=== PATIENT | female | born 1985 | race Caucasian/White ===

== ENCOUNTER 2018-02-14 15:40 | Observation (INO) | payer OTHER ==
[~2018-02-14] VITALS: Ht 168 cm; Wt 80.3 kg
[2018-02-14 16:00] VITALS: BP 118/72
[2018-02-14 16:10] VITALS: BP 118/72
[2018-02-15] MEDS ORDERED: PNV11TAB PO (16:56)
== END 2018-02-14 18:40 | disposition home or self-care (01) ==
LOC: 4S 15:40
PROVIDERS: ADMIT Obstetrics & Gynecology; ATTEND Obstetrics & Gynecology
DX: O62.9 Abnormality of forces of labor, unspecified (principal); Z3A.39 39 weeks gestation of pregnancy
CPT/HCPCS: 59025; G0378

== ENCOUNTER 2018-02-15 16:22 | Inpatient (IN) | payer OTHER ==
[~2018-02-15] VITALS: Ht 167.6 cm; Wt 78.0 kg
[2018-02-15] MEDS ORDERED: PNV11TAB PO (16:56)
[2018-02-15] MEDS ORDERED: RINGERS SOLUTION,LACTATED 1,000 ML IV ONE ×2 (17:10→17:25)
[2018-02-15] MEDS ORDERED: RINGERS SOLUTION,LACTATED 1,000 ML IV PRN (17:14)
[2018-02-15] MEDS ORDERED: OXYTOCIN 30 UNITS/LACT RINGERS 500 ML IV ONE (17:14)
[2018-02-15] MEDS ORDERED: CITRIC ACID/SODIUM CITRATE 30 ML SOLUTION UDCUP PO PRN (17:15)
[2018-02-15] MEDS ORDERED: LIDOCAINE/PF 1% 30 ML VIAL INJ PRN (17:15)
[2018-02-15] MEDS ORDERED: METHYLERGONOVINE MALEATE 0.2 MG/ML VIAL IM PRN (17:15)
[2018-02-15] MEDS ORDERED: METOCLOPRAMIDE HCL 5 MG/ML 2 ML VIAL IVP PRN (17:15)
[2018-02-15] MEDS ORDERED: FentaNYL CITRATE-PF 100 MCG/2 ML VIAL IVP PRN (17:15)
[2018-02-15] MEDS ORDERED: LIDOCAINE/PF 2% 5 ML VIAL ONE (17:35)
[2018-02-15] MEDS ORDERED: ROPIVACAINE HCL/PF 0.2% 100 ML ED ONE (17:35)
[2018-02-15] MEDS: RINGERS SOLUTION,LACTATED 1,000 ML IV SCH ×2 (17:54→21:17)
[2018-02-15] MEDS ORDERED: ROPIVACAINE HCL/PF 0.2% 100 ML ED PRN (17:59)
[2018-02-15] MEDS ORDERED: ONDANSETRON HCL 4 MG/2 ML VIAL IVP PRN (18:00)
[2018-02-15] MEDS ORDERED: DiphenhydrAMINE HCL 50 MG/ML VIAL IVP PRN (18:00)
[2018-02-15] MEDS ORDERED: NALBUPHINE HCL 10 MG/ML VIAL IVP PRN (18:00)
[2018-02-15 18:08] LABS: BASOPHILS % (AUTO) 0.3 % (0.0-2.0); EOSINOPHILS % (AUTO) 0 % (1.0-6.0); HEMATOCRIT 36.8 % (36-46); HEMOGLOBIN 12.4 g/dL (12.0-16.0); LYMPHOCYTES # (AUTO) 1.2 K/uL (1.0-4.8); MEAN CORPUSCULAR HEMOGLOBIN 32.7 pg (26.0-34.0); MEAN CORPUSCULAR HGB CONC 33.6 G/dL (31.0-37.0); MEAN CORPUSCULAR VOLUME 97 fL (80-100); MONOCYTES # (AUTO) 0.3 K/uL (0.1-1.0); MONOCYTES % (AUTO) 2.2 % (2.0-9.0); NEUTROPHILS # (AUTO) 10.3 K/uL (1.8-7.7); PLATELET COUNT (AUTO)-OB 154 K/uL (150-450); RED BLOOD CELL COUNT(AUTO) 3.78 MIL/uL (4.00-5.20); RED CELL DISTRIBUTION WIDTH 13.2 % (11.5-14.5)
[2018-02-15 18:09] LABS: NEUTROPHILS % (AUTO) 87.5 % (40.0-70.0)
[2018-02-15] MEDS ORDERED: OXYGEN THERAPY IH SCH (20:00)
[2018-02-16] MEDS ORDERED: ROPIVACAINE HCL/PF 0.2% 100 ML ED ONE (00:16)
[2018-02-16] MEDS: RINGERS SOLUTION,LACTATED 1,000 ML IV SCH (05:00)
[2018-02-16] MEDS ORDERED: OXYTOCIN 20 UNITS/LACT RINGERS 1,000 ML IV SCH (05:52)
[2018-02-16] MEDS ORDERED: ACETAMINOPHEN/CODEINE 300-30 MG TABLET PO PRN ×2 (06:00)
[2018-02-16] MEDS ORDERED: SENNA/DOCUSATE SODIUM 187-50 MG TABLET PO PRN (06:00)
[2018-02-16] MEDS ORDERED: GLYCERIN/WITCH HAZEL LEAF 40 PADS JAR TP PRN (06:00)
[2018-02-16] MEDS ORDERED: MEASLES/MUMPS/RUBELLA VACCINE, LIVE 0.5 ML/VIAL SQ ONE (06:00)
[2018-02-16] MEDS ORDERED: LANOLIN 7 GM OINTMENT TP PRN (06:00)
[2018-02-16] MEDS ORDERED: BENZOCAINE 20%/MENTHOL 56 GM SPRAY CANISTER TP PRN (06:00)
[2018-02-16] MEDS ORDERED: IBUPROFEN 600 MG TABLET PO PRN (06:00)
[2018-02-16] MEDS: MAGNESIUM HYDROXIDE SUSPENSION 30 ML UDCUP PO PRN (21:30)
[2018-02-17 06:47] LABS: BASOPHILS % (AUTO) 0.2 % (0.0-2.0); EOSINOPHILS % (AUTO) 0.5 % (1.0-6.0); HEMATOCRIT 33.4 % (36-46); HEMOGLOBIN 11.3 g/dL (12.0-16.0); LYMPHOCYTES # (AUTO) 2.1 K/uL (1.0-4.8); LYMPHOCYTES % (AUTO) 16.6 % (22.0-44.0); MEAN CORPUSCULAR HEMOGLOBIN 32.6 pg (26.0-34.0); MEAN CORPUSCULAR HGB CONC 33.7 G/dL (31.0-37.0); MEAN CORPUSCULAR VOLUME 97 fL (80-100); MONOCYTES # (AUTO) 0.7 K/uL (0.1-1.0); MONOCYTES % (AUTO) 5.4 % (2.0-9.0); NEUTROPHILS # (AUTO) 9.8 K/uL (1.8-7.7); NEUTROPHILS % (AUTO) 77.3 % (40.0-70.0); PLATELET COUNT (AUTO)-OB 139 K/uL (150-450); RED BLOOD CELL COUNT(AUTO) 3.46 MIL/uL (4.00-5.20); RED CELL DISTRIBUTION WIDTH 13.4 % (11.5-14.5)
[2018-02-17] MEDS: MAGNESIUM HYDROXIDE SUSPENSION 30 ML UDCUP PO PRN (08:45)
[2018-02-17] MEDS ORDERED: DSS100 PO (10:06)
[2018-02-17] MEDS ORDERED: IBUP-2071 PO (10:06)
[2018-02-17] MEDS ORDERED: FERR-89 PO (10:07)
== END 2018-02-17 11:40 | disposition home or self-care (01) | DRG 807 ==
LOC: 4S 16:22 → OBSVTOIN 16:22
PROVIDERS: ADMIT Obstetrics & Gynecology; ATTEND Obstetrics & Gynecology
PROC: 10E0XZZ Delivery of Products of Conception, External Approach (ICD-10-PCS; principal; 2018-02-16)
PROC: 0KQM0ZZ Repair Perineum Muscle, Open Approach (ICD-10-PCS; 2018-02-16)
PROC: 0W8NXZZ Division of Female Perineum, External Approach (ICD-10-PCS; 2018-02-16)
PROC: 3E0R3BZ Introduction of Anesthetic Agent into Spinal Canal, Percutaneous Approach (ICD-10-PCS; 2018-02-16)
PROC: 00HU33Z Insertion of Infusion Device into Spinal Canal, Percutaneous Approach (ICD-10-PCS; 2018-02-16)
DX: O42.92 Full-term premature rupture of membranes, unspecified as to length of time between rupture and onset of labor (principal); Z37.0 Single live birth; O70.0 First degree perineal laceration during delivery; Z3A.39 39 weeks gestation of pregnancy
CPT/HCPCS: 86850; 86900; 86901; J2590; J2795; J3010; J3490; J7120